=== PATIENT | male | born 1985 | race African-American/Black ===

== ENCOUNTER 2016-04-09 13:18 | Emergency (ER) | payer OTHER ==
[~2016-04-09] VITALS: Ht 172.7 cm; Wt 93.7 kg
[2016-04-09 13:20] VITALS: TEMP 36.8; Ht 172.7 cm; Wt 93.7 kg
[2016-04-09 13:23] VITALS: O2SAT 99
[2016-04-09 13:50] LABS: BASO % 0.1 %; BASO ABS # 0.01 K/uL (0-0.2); COMPLETE YES; EOS % 0.9 %; HEMATOCRIT 41.1 % (42-52); IG% 0.1 %; LYMPH % 34.7 %; LYMPH ABS # 2.63 K/uL (1.2-3.4); MEAN CELL VOLUME 87.6 fL (80-100); MEAN CORPUSCULAR HEMOGLOBIN 31.8 pg (25-34); MEAN CORPUSCULAR HGB CONC 36.3 g/dl (32-36); MEAN PLATELET VOLUME 11.8 fL (7.4-10.4); NEUT % 60.2 %; PLATELET COUNT 239 K/uL (130-400); RED BLOOD COUNT 4.69 M/uL (4.7-6.1); WHITE BLOOD COUNT 7.57 K/uL (4.8-10.8)
[2016-04-09 14:37] LABS: URINE APPEARANCE CLEAR (CLEAR); URINE BILIRUBIN NEG (NEG); URINE COLOR YELLOW; URINE NITRITE NEG (NEG); URINE SPECIFIC GRAVITY 1.013 (1.000-1.030); UROBILINOGEN NEG (NEG); ZZUR CULT IF INDIC CLEAN CATCH NO
[2016-04-09 14:50] LABS: MANUAL MICROSCOPIC REQUIRED? NO; REVIEW REQ? NO
[2016-04-09 14:54] LABS: BUN/CREATININE RATIO 9.1 (10-20); CALCIUM 8.6 mg/dl (8.5-10.1); CREATININE 1.1 mg/dl (0.60-1.40)
[2016-04-09 15:00] LABS: POTASSIUM 3.7 mmol/L (3.5-5.1)
[2016-04-09] MEDS ORDERED: FAMOTIDINE 20 MG TAB PO STA (15:19)
[2016-04-09] MEDS ORDERED: SODIUM CHLORIDE 0.9% 1000ML 1,000 ML IV STA (15:19)
[2016-04-09] MEDS ORDERED: ONDANSETRON INJ 2 MG/ML 2 ML VIAL IV STA (15:19)
[2016-04-09] MEDS ORDERED: GI COCKTAIL PO STA (15:19)
[2016-04-09] MEDS ORDERED: SUCRALFATE 1 GM TAB PO STA (15:19)
--- NOTE | 2016-04-09 15:20 | EMERGENCY ROOM VISIT NOTE ---
History Report prepared by Lucy: Dakotah Jamison Under the Supervision of: Dr. Blayne Bowman M.D. 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 He says he has been having gas issues that cause him to feel pain. The patient says the pain wraps to his back. He has never been able to follow up with a doctor about this due to insurance problems. Today, the patient's pain worsened earlier today while driving. He states that he heard a "pop" that made him nervous. He then called for an ambulance. The patient says his bowel movements have been normal, and he denies any diarrhea. Source of History: patient Onset: 2 weeks ago Position: abdomen (left-sided) Timing: intermittent, worsening (today) Associated Symptoms: + back pain, No diarrhea Note: No other associated symptoms noted. Review of Systems See HPI for pertinent positives & negatives. A total of 10 systems reviewed and were otherwise negative. Past Medical & Surgical Medical Problems: (1) Ulcer Family History No pertinent family history Social History Smoking Status: Former Smoker Alcohol Use: none Marital Status: single Housing Status: other (homeless) Occupation Status: employed Current/Historical Medications Scheduled Famotidine (Pepcid), 40 MG PO HS Allergies Coded Allergies: No Known Allergies (Unverified , 04/09/16) Physical Exam Vital Signs Date Time Temp Pulse Resp B/P Pulse Ox O2 Delivery O2 Flow Rate FiO2 04/09/16 17:38 85 18 135/72 96 04/09/16 15:58 142/82 04/09/16 15:28 139/93 04/09/16 15:03 82 18 98 04/09/16 14:58 77 21 144/107 97 04/09/16 14:53 78 15 99 04/09/16 14:48 76 15 97 04/09/16 14:43 76 16 97 04/09/16 14:38 78 13 98 04/09/16 14:33 76 15 98 04/09/16 14:28 77 18 141/88 97 04/09/16 14:23 86 24 150/93 97 Room Air 04/09/16 14:23 87 26 96 04/09/16 14:18 83 14 98 04/09/16 14:13 87 97 04/09/16 14:03 81 20 04/09/16 13:58 86 17 150/93 04/09/16 13:53 85 16 04/09/16 13:48 89 17 04/09/16 13:43 87 8 04/09/16 13:38 88 17 04/09/16 13:33 88 19 04/09/16 13:28 94 17 143/104 100 04/09/16 13:25 96 04/09/16 13:23 99 Room Air 04/09/16 13:20 36.8 101 20 173/101 99 Room Air 04/09/16 13:20 173/101 Physical Exam GENERAL: Patient is a healthy-appearing well-nourished HEAD: Normocephalic atraumatic EYES: Ocular movements intact pupils equal and react to light OROPHARYNX mucous membranes are moist no exudates present no erythema or edema present NECK: Supple no nuchal rigidity CHEST: Good equal expansion LUNGS: Clear and equal to auscultation CARDIAC: Normal S1 and S2 ABDOMEN: Soft nontender no guarding BACK: No CVA tenderness EXTREMITIES: No pain upon palpation normal muscle strength in all groups no clubbing cyanosis or edema NEURO: Patient is following commands is answering questions appropriately. Alert and oriented x3 Cranial Nerves 2-12 grossly intact Medical Decision & Procedures ER Provider Diagnostic Interpretation: CT results as stated below per my review and radiologist interpretation: CT SCAN OF THE ABDOMEN AND PELVIS WITHOUT CONTRAST CLINICAL HISTORY: Left upper quadrant abdominal pain COMPARISON STUDY: No previous studies for comparison. TECHNIQUE: CT scan of the abdomen and pelvis was performed from the lung bases to the proximal femurs. Images are reviewed in the axial, sagittal, and coronal planes. IV contrast was not administered for this examination. CT DOSE: 460.49 mGy.cm FINDINGS: Lower chest: The heart is normal in size and configuration, without pericardial effusion. The lung bases and pleural spaces are clear. Liver: The unenhanced liver is normal in size, contour, and attenuation. There is no intrahepatic biliary ductal dilatation. Gallbladder: Unremarkable. Spleen: Normal in size and attenuation. Pancreas: Unremarkable. Adrenal glands: Unremarkable. Kidneys: The unenhanced kidneys are normal in size without hydronephrosis. There is no contour deforming renal mass lesion. No renal calculi are identified. Bowel: There are no transition zones indicate bowel obstruction. There is a tiny fat-containing umbilical hernia. The appendix appears normal. There is no evidence of acute diverticulitis. Peritoneum: There is no intraperitoneal free air or abdominal ascites. Vasculature: The abdominal aorta is normal in course and caliber. Adenopathy: None. Pelvic viscera: The bladder, and pelvic viscera are unremarkable. Skeletal structures: No destructive osseous lesions are seen. IMPRESSION: 1. No acute intra-abdominal or pelvic findings 2. No evidence of bowel obstruction. No evidence of free air 3. Normal appendix 4. No renal, ureteral, or bladder calculi identified. Electronically signed by: Horace Hernandes M.D. 04/09/2016 4:34 PM Dictated Date/Time: 04/09/2016 4:31 PM Laboratory Results 04/09/16 13:30 Red Blood Count 4.69, Mean Corpuscular Volume 87.6, Mean Corpuscular Hemoglobin 31.8, Mean Corpuscular Hemoglobin Concent 36.3, Mean Platelet Volume 11.8, Neutrophils (%) (Auto) 60.2, Lymphocytes (%) (Auto) 34.7, Monocytes (%) (Auto) 4.0, Eosinophils (%) (Auto) 0.9, Basophils (%) (Auto) 0.1, Neutrophils # (Auto) 4.55, Lymphocytes # (Auto) 2.63, Monocytes # (Auto) 0.30, Eosinophils # (Auto) 0.07, Basophils # (Auto) 0.01 04/09/16 13:30 Test 04/09/16 13:30 04/09/16 14:10 White Blood Count 7.57 K/uL (4.8-10.8) Red Blood Count 4.69 M/uL (4.7-6.1) Hemoglobin 14.9 g/dL (14.0-18.0) Hematocrit 41.1 % (42-52) Mean Corpuscular Volume 87.6 fL (80-100) Mean Corpuscular Hemoglobin 31.8 pg (25-34) Mean Corpuscular Hemoglobin Concent 36.3 g/dl (32-36) Platelet Count 239 K/uL (130-400) Mean Platelet Volume 11.8 fL (7.4-10.4) Neutrophils (%) (Auto) 60.2 % Lymphocytes (%) (Auto) 34.7 % Monocytes (%) (Auto) 4.0 % Eosinophils (%) (Auto) 0.9 % Basophils (%) (Auto) 0.1 % Neutrophils # (Auto) 4.55 K/uL (1.4-6.5) Lymphocytes # (Auto) 2.63 K/uL (1.2-3.4) Monocytes # (Auto) 0.30 K/uL (0.11-0.59) Eosinophils # (Auto) 0.07 K/uL (0-0.5) Basophils # (Auto) 0.01 K/uL (0-0.2) RDW Standard Deviation 41.0 fL (36.4-46.3) RDW Coefficient of Variation 12.9 % (11.5-14.5) Immature Granulocyte % (Auto) 0.1 % Immature Granulocyte # (Auto) 0.01 K/uL (0.00-0.02) Anion Gap 9.0 mmol/L (3-11) Est Creatinine Clear Calc Drug Dose 108.0 ml/min Estimated GFR () 103.1 Estimated GFR (Non- 89.0 BUN/Creatinine Ratio 9.1 (10-20) Calcium Level 8.6 mg/dl (8.5-10.1) Total Bilirubin 0.3 mg/dl (0.2-1) Aspartate Amino Transf (AST/SGOT) 14 U/L (15-37) Alanine Aminotransferase (ALT/SGPT) 23 U/L (12-78) Alkaline Phosphatase 71 U/L (45-117) Total Protein 8.0 gm/dl (6.4-8.2) Albumin 4.0 gm/dl (3.4-5.0) Globulin 4.0 gm/dl (2.5-4.0) Albumin/Globulin Ratio 1.0 (0.9-2) Lipase 141 U/L (73-393) Urine Color YELLOW Urine Appearance CLEAR (CLEAR) Urine pH 5.0 (4.5-7.5) Urine Specific [place] 1.013 (1.000-1.030) Urine Protein NEG (NEG) Urine Glucose (UA) NEG (NEG) Urine Ketones NEG (NEG) Urine Occult Blood NEG (NEG) Urine Nitrite NEG (NEG) Urine Bilirubin NEG (NEG) Urine Urobilinogen NEG (NEG) Urine Leukocyte Esterase NEG (NEG) Labs reviewed by ED physician. Medications Administered Medications (Trade) Dose Ordered Sig/[place] Route Start Time Stop Time Status Last Admin Dose Admin Famotidine (Pepcid Tab) 20 mg NOW STAT PO 04/09/16 15:19 04/09/16 15:22 DC 04/09/16 16:13 20 MG Sucralfate 1 gm 1 gm NOW STAT PO 04/09/16 15:19 04/09/16 15:22 DC 04/09/16 16:13 1 GM Sodium Chloride (Nss 1000ml) 1,000 ml @ 999 mls/hr Q1H1M STAT IV 04/09/16 15:19 04/09/16 16:19 DC 04/09/16 16:13 999 MLS/HR Ondansetron HCl (Zofran Inj) 4 mg NOW STAT IV 04/09/16 15:19 04/09/16 15:22 DC 04/09/16 16:11 4 MG Lidocaine HCl (Viscous Lidocaine 2% Soln) 20 ml STK-MED ONCE .ROUTE 04/09/16 16:08 04/09/16 16:10 DC 04/09/16 16:12 20 ML Al Hydroxide/Mg Hydroxide (Maalox Susp) 30 ml STK-MED ONCE .ROUTE 04/09/16 16:08 04/09/16 16:10 DC 04/09/16 16:12 30 ML ECG Indication: abdominal pain Rate (beats per minute): 101 Rhythm: sinus tachycardia Findings: no acute ischemic change, no ectopy ED Course 1510: Past medical records reviewed. The patient was evaluated in room C12B. A complete history and physical examination was performed. 1519: Ordered Zofran Inj 4 mg IV, NSS 1000 ml @ 999 mls/hr IV, Carafate Tab 1 gm PO, Pepcid Tab 20 mg PO, GI Cocktail 24 ml PO. 1710: I reevaluated the patient and he is resting comfortably. The patient verbally expressed understanding and agreement of the treatment plan. The patient will be discharged. Medical Decision Differential diagnosis: Etiologies such as appendicitis, diverticulitis, PUD, biliary pathology, UTI, pancreatitis, obstruction, mesenteric ischemia, aortic pathology, infections, inflammatory bowel disease, renal colic, as well as others were entertained. This is a 30-year-old male who presents emergency department complaining of LUQ abd pain. The patient reports he is not from this area however he has not followed up with her physician for his continuing left upper quadrant abdominal pain. Serial abdominal examinations were performed on the patient in the emergency department and at no time did the patient exhibited a surgical abdomen. Based on these findings and using shared medical decision-making as well as a normal CBC normal renal profile normal liver profile normal lipase we decided to CAT scan the patient's abdomen. I do believe that the patient is suffering from a gastritis and he he was given a GI cocktail, Pepcid, Carafate. The patient was also given a normal saline bolus as well as Zofran. Repeat examination revealed improvement in the patient's symptoms. I do believe that the patient is well enough to be discharged home for follow-up with gastroenterology. In the meantime the patient is going to use a clear liquid diet as well as 5 mL some Maalox before every meal and at bedtime. Patient was in agreement with the treatment plan. Impression Primary Impression: Epigastric pain Scribe Attestation The scribe's documentation has been prepared under my direction and personally reviewed by me in its entirety. I confirm that the note above accurately reflects all work, treatment, procedures, and medical decision making performed by me. 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 You have been examined and treated today on an emergency basis only. This is not a substitute for, or an effort to provide, complete comprehensive medical care. It is impossible to recognize and treat all injuries or illnesses in a single emergency department visit. It is therefore important that you follow up closely with your PCP. Call as soon as possible for an appointment. Thank you for your time and consideration. I look forward to speaking with you again soon. Please don't hesitate to call us if you have any questions.
[2016-04-09] MEDS ORDERED: LIDOCAINE HCL 2% VISC SOLN 20 ML UDC ONE (16:08)
[2016-04-09] MEDS ORDERED: ALUMINUM/MAGNESIUM SUSP 30 ML UDC ONE (16:08)
--- NOTE | 2016-04-09 16:36 | DIAGNOSTIC IMAGING REPORT ---
CT SCAN OF THE ABDOMEN AND PELVIS WITHOUT CONTRAST CLINICAL HISTORY: Left upper quadrant abdominal pain COMPARISON STUDY: No previous studies for comparison. TECHNIQUE: CT scan of the abdomen and pelvis was performed from the lung bases to the proximal femurs. Images are reviewed in the axial, sagittal, and coronal planes. IV contrast was not administered for this examination. CT DOSE: 460.49 mGy.cm FINDINGS: Lower chest: The heart is normal in size and configuration, without pericardial effusion. The lung bases and pleural spaces are clear. Liver: The unenhanced liver is normal in size, contour, and attenuation. There is no intrahepatic biliary ductal dilatation. Gallbladder: Unremarkable. Spleen: Normal in size and attenuation. Pancreas: Unremarkable. Adrenal glands: Unremarkable. Kidneys: The unenhanced kidneys are normal in size without hydronephrosis. There is no contour deforming renal mass lesion. No renal calculi are identified. Bowel: There are no transition zones indicate bowel obstruction. There is a tiny fat-containing umbilical hernia. The appendix appears normal. There is no evidence of acute diverticulitis. Peritoneum: There is no intraperitoneal free air or abdominal ascites. Vasculature: The abdominal aorta is normal in course and caliber. Adenopathy: None. Pelvic viscera: The bladder, and pelvic viscera are unremarkable. Skeletal structures: No destructive osseous lesions are seen. IMPRESSION: 1. No acute intra-abdominal or pelvic findings 2. No evidence of bowel obstruction. No evidence of free air 3. Normal appendix 4. No renal, ureteral, or bladder calculi identified. Electronically signed by: Horace Hernandes M.D. 04/09/2016 4:34 PM Dictated Date/Time: 04/09/2016 4:31 PM
[2016-04-09] MEDS ORDERED: FAMO40TA6 PO (17:16)
[2016-04-09 17:38] VITALS: BP 135/72; PULSE 85; O2SAT 96
== END 2016-04-09 17:41 | disposition home or self-care (01) ==
LOC: C.EDC 13:24
DX: R10.13 Epigastric pain (principal); R00.0 Tachycardia, unspecified; Z87.19 Personal history of other diseases of the digestive system; Z87.891 Personal history of nicotine dependence; Z79.899 Other long term (current) drug therapy